=== PATIENT | male | born 1965 | race Hispanic/Latino ===

== ENCOUNTER 2021-12-31 18:10 | Emergency (ER) | payer MEDICARE ==
[2021-12-31] MEDS ORDERED: Cyclobenzaprine 10 MG TAB ONE (20:01)
== END 2021-12-31 20:50 | disposition home or self-care (01) ==
LOC: CSHERS 18:10
DX: M54.6 Pain in thoracic spine (principal); E78.5 Hyperlipidemia, unspecified; E11.22 Type 2 diabetes mellitus with diabetic chronic kidney disease; I12.0 Hypertensive chronic kidney disease with stage 5 chronic kidney disease or end stage renal disease; N18.6 End stage renal disease; W19.XXXA Unspecified fall, initial encounter
CPT/HCPCS: 72040; 72072

== ENCOUNTER 2022-02-23 17:00 | Emergency (ER) | payer MEDICARE ==
[2022-02-23 18:22] LABS: SARS-CoV-2 NAA Rapid Test DETECTED (NotDetected)
== END 2022-02-23 19:03 | disposition home or self-care (01) ==
LOC: CSHERS 17:00
DX: U07.1 COVID-19 (principal); E78.5 Hyperlipidemia, unspecified; E11.22 Type 2 diabetes mellitus with diabetic chronic kidney disease; I12.0 Hypertensive chronic kidney disease with stage 5 chronic kidney disease or end stage renal disease; N18.6 End stage renal disease
CPT/HCPCS: 0240U; 99284

== ENCOUNTER 2022-04-07 14:56 | Inpatient (IN) | payer MEDICARE ==
[2022-04-07 15:43] LABS: #Basophils 0.1 10x3/uL (0.0-0.2); #Eosinphils 0.2 10x3/uL (0.0-0.5); #Monocytes 1.2 10x3/uL (0.0-1.1); #Neutrophils 6.4 10x3/uL (1.5-8.4); %Basophils 0.8 % (0.0-2.0); %Eosinophils 2.1 % (0.0-6.0); %Monocytes 11.7 % (0.0-10.0); %Neutrophils 62.2 % (40.0-75.0); Mean Corpuscular HGB CONC 32.7 g/dL (32.0-36.0); Mean Corpuscular Hemoglobin 29.3 pg (27.0-33.0); Mean Corpuscular Volume 89.5 fl (81.2-95.1); Mean Platelet Volume 12.7 fl (7.4-10.4); Platelet Count 240 10x3/uL (150-450); RBC Distribution Width 15.1 % (11.5-14.5); White Blood Cell (WBC) Count 10.3 10x3/uL (3.5-10.5)
[2022-04-07] MEDS ORDERED: Calcium Gluconate 9.2 MEQ, Admixture Fee 1 EACH in Sodium Chloride 0.9% 100 ML IVPB SCH (16:00)
[2022-04-07 16:21] LABS: ALT (SGPT) 32 U/L (8-55); AST (SGOT) 20 U/L (5-34); Albumin 3.7 g/dL (3.5-5.0); Alkaline Phosphatase 56 U/L (40-110); Anion Gap 21 mmol/L (10-20); BUN (Urea Nitrogen) 69 mg/dL (8.4-25.7); Bilirubin, Total 0.4 mg/dL (0.2-1.2); Calc. Creatinine Clearance 0 mL/min (70-130); Calcium 10.3 mg/dL (7.8-10.44); Carbon Dioxide 27 mmol/L (22-29); Chloride 94 mmol/L (98-107); Estimated GFR 5; Globulin 2.8 g/dL (2.4-3.5); Glucose 493 mg/dL (70-105); Potassium 5.6 mmol/L (3.5-5.1); Protein, Total 6.5 g/dL (6.0-8.3); Sodium 136 mmol/L (136-145)
[2022-04-07 16:44] LABS: CKMB 1.7 ng/mL (0-6.6)
[2022-04-07] MEDS ORDERED: Sodium Bicarb 50 MEQ/50 ML Abboject 8.4% SYRINGE ONE (17:16)
[2022-04-07 17:22] LABS: SARS-CoV-2 NAA Rapid Test DETECTED (NotDetected)
[2022-04-07] MEDS ORDERED: HumaLOG 300 UNITS/3 ML VIAL SC PRN (18:10)
[2022-04-07] MEDS ORDERED: Dextrose 50% Abboject 50 ML SYRINGE SLOW IVP PRN (18:10)
[2022-04-07] MEDS ORDERED: Dextrose 5% in Water 1,000 ML IV PRN (18:10)
[2022-04-07 19:11] LABS: HBSAg Index 0.24 S/CO (0-0.99); Hep B Surf Ag Non-Reactive S/CO (NonReactive)
[2022-04-07 19:15] LABS: Actual Bicarbonate (HCO3v) 32 mEq/L (22-28); Base Excess 5.1 mEq/L (-2.0 to +3.0); Chloride (VBG) 94 mmol/L (98-106); Critical Notified Whom: DURRI; Hemoglobin (Hb) 13.3 g/dL (13.1-17.2); Potassium (VBG) 5.27 mmol/L (3.70-5.30); Puncture Site Other Site; Sodium 138.2 mmol/L (133-146); pH (venous) 7.37 (7.32-7.43)
[2022-04-07 19:34] LABS: Troponin I 0.084 ng/mL (< 0.028)
[2022-04-07] MEDS ORDERED: Aspirin 325 MG TAB PO SCH (20:15)
[2022-04-07] MEDS ORDERED: Heparin 5,000 UNITS/ML VIAL ONE (21:51)
[2022-04-07] MEDS ORDERED: Aspirin 325 MG TAB ONE (21:52)
[2022-04-07] MEDS: Sodium Chloride 0.9% 1,000 ML IV SCH (22:04)
[2022-04-07] MEDS ORDERED: Guaifenesin DM 100-10/5 ML UDCUP PO PRN (22:21)
[2022-04-07 22:22] LABS: Troponin I 0.227 ng/mL (< 0.028)
[2022-04-07 22:30] LABS: Hemoglobin A1c 10.8 % (4.0-6.0)
[2022-04-07] MEDS ORDERED: Guaifenesin DM 100-10/5 ML UDCUP PO SCH (22:30)
[2022-04-07] MEDS: Heparin 5,000 UNITS/ML VIAL SC SCH (22:38)
[2022-04-07 23:14] LABS: Hep B Core Total Ab Non-Reactive (NonReactive); Hep B Core Total Index 0.08 S/CO (0-0.79); Hep C IgG Ab Non-Reactive (NonReactive)
[2022-04-07 23:26] LABS: HBSAB Concentration 23.77 mIU/mL
[2022-04-07 23:27] LABS: Hep B Surf AB Reactive (NonReactive); Hep C Index 0.09 S/CO (0-0.79)
[2022-04-07] MEDS: HumaLOG 300 UNITS/3 ML VIAL SC PRN (23:37)
[2022-04-07] MEDS ORDERED: HumaLOG 300 UNITS/3 ML VIAL ONE (23:41)
[2022-04-08] MEDS ORDERED: Oxymetazoline HCl 0.05% ( 15 ML ) ONE (03:00)
[2022-04-08 04:11] LABS: #Basophils 0.1 10x3/uL (0.0-0.2); #Eosinphils 0.3 10x3/uL (0.0-0.5); #Monocytes 1.1 10x3/uL (0.0-1.1); #Neutrophils 6.8 10x3/uL (1.5-8.4); %Basophils 0.7 % (0.0-2.0); %Eosinophils 3.1 % (0.0-6.0); %Monocytes 9.7 % (0.0-10.0); %Neutrophils 62.3 % (40.0-75.0); Hemoglobin 11.5 g/dL (13.5-17.5); Mean Corpuscular HGB CONC 31.9 g/dL (32.0-36.0); Mean Corpuscular Hemoglobin 29.2 pg (27.0-33.0); Mean Corpuscular Volume 91.4 fl (81.2-95.1); Mean Platelet Volume 12.2 fl (7.4-10.4); Platelet Count 222 10x3/uL (150-450); Red Blood Cell (RBC) Count 3.94 10x6/uL (4.32-5.72); White Blood Cell (WBC) Count 10.9 10x3/uL (3.5-10.5)
[2022-04-08 04:31] LABS: Anion Gap 16 mmol/L (10-20); BUN (Urea Nitrogen) 47 mg/dL (8.4-25.7); Calc. Creatinine Clearance 0 mL/min (70-130); Carbon Dioxide 29 mmol/L (22-29); Chloride 98 mmol/L (98-107); Estimated GFR 8; Glucose 234 mg/dL (70-105); Potassium 4.5 mmol/L (3.5-5.1); Sodium 138 mmol/L (136-145)
[2022-04-08] MEDS: Aspirin 81 mg Enteric Coated Tablet PO SCH (09:50)
[2022-04-08] MEDS: Sodium Chloride 0.9% 1,000 ML IV SCH (11:03)
[2022-04-08] MEDS: Heparin 5,000 UNITS/ML VIAL SC SCH ×2 (11:04→22:24)
[2022-04-08] MEDS ORDERED: guaiFENesin/Codeine 200 mg/20 mg 10 ml Cup PO PRN (11:57)
[2022-04-08] MEDS ORDERED: Albuterol 200 PUFF (6.7GM INHALER) INH PRN (12:03)
[2022-04-08] MEDS ORDERED: Lorazepam 0.5 MG TAB PO PRN (12:05)
[2022-04-08] MEDS ORDERED: hydrALAZINE 20 MG/ML VIAL SLOW IVP PRN (12:08)
[2022-04-08] MEDS ORDERED: Albuterol 200 PUFF (6.7GM INHALER) INH SCH (13:00)
[2022-04-08] MEDS: methylPREDNISolone Sod Succ 40 MG VIAL IVP SCH ×2 (14:48→21:45)
[2022-04-08] MEDS: Acetaminophen 325 MG TAB PO PRN (16:42)
[2022-04-08] MEDS: Ipratropium Oral Inhaler INH SCH (17:38)
[2022-04-08] MEDS: guaiFENesin/Codeine Phosphate 100 mg/10 mg 5 ml UD Cup PO PRN (17:42)
[2022-04-08] MEDS ORDERED: Lantus 1000 UNITS/10 ML VIAL SC SCH (21:00)
[2022-04-08] MEDS: HumaLOG 300 UNITS/3 ML VIAL SC PRN (22:29)
[2022-04-09] MEDS: Ipratropium Oral Inhaler INH SCH ×5 (00:38→18:50)
[2022-04-09] MEDS: guaiFENesin/Codeine Phosphate 100 mg/10 mg 5 ml UD Cup PO PRN (04:26)
[2022-04-09] MEDS: HumaLOG 300 UNITS/3 ML VIAL SC PRN ×3 (04:26→19:31)
[2022-04-09 05:27] LABS: #Monocytes 0.1 10x3/uL (0.0-1.1); #Neutrophils 8.3 10x3/uL (1.5-8.4); %Basophils 0.1 % (0.0-2.0); %Lymphocytes 9.5 % (18.0-47.0); %Monocytes 1.3 % (0.0-10.0); %Neutrophils 88.9 % (40.0-75.0); Hemoglobin 12.3 g/dL (13.5-17.5); Mean Corpuscular HGB CONC 32.1 g/dL (32.0-36.0); Mean Corpuscular Hemoglobin 29.2 pg (27.0-33.0); Mean Platelet Volume 12.8 fl (7.4-10.4); Platelet Count 242 10x3/uL (150-450); RBC Distribution Width 14.8 % (11.5-14.5); Red Blood Cell (RBC) Count 4.21 10x6/uL (4.32-5.72); White Blood Cell (WBC) Count 9.3 10x3/uL (3.5-10.5)
[2022-04-09 05:30] LABS: Anion Gap 19 mmol/L (10-20); BUN (Urea Nitrogen) 53 mg/dL (8.4-25.7); Calc. Creatinine Clearance 18 mL/min (70-130); Calcium 9.8 mg/dL (7.8-10.44); Carbon Dioxide 24 mmol/L (22-29); Chloride 95 mmol/L (98-107); Estimated GFR 8; Glucose 535 mg/dL (70-105); Potassium 5.5 mmol/L (3.5-5.1); Sodium 132 mmol/L (136-145)
[2022-04-09] MEDS ORDERED: Ventolin HFA Inhaler 60 PUFF INHALER INH SCH (07:00)
[2022-04-09] MEDS: methylPREDNISolone Sod Succ 40 MG VIAL IVP SCH ×2 (07:09→20:51)
[2022-04-09] MEDS: Amlodipine 10 MG TAB PO SCH (10:28)
[2022-04-09] MEDS: Heparin 5,000 UNITS/ML VIAL SC SCH ×2 (10:29→20:49)
[2022-04-09] MEDS: Aspirin 81 mg Enteric Coated Tablet PO SCH (10:29)
[2022-04-09] MEDS: hydrALAZINE 25 MG TAB PO SCH ×3 (10:29→21:04)
[2022-04-09 12:29] VITALS: BMI 41.4
[2022-04-09] MEDS: Albuterol 200 PUFF (6.7GM INHALER) INH SCH ×3 (14:12→18:49)
[2022-04-09] MEDS: Lantus 1000 UNITS/10 ML VIAL SC SCH (20:52)
[2022-04-10] MEDS: Calcium Carbonate 500 MG ChewTAB PO PRN (02:29)
[2022-04-10] MEDS: HumaLOG 300 UNITS/3 ML VIAL SC PRN ×4 (02:30→16:39)
[2022-04-10 05:19] LABS: #Monocytes 0.2 10x3/uL (0.0-1.1); #Neutrophils 11.3 10x3/uL (1.5-8.4); %Basophils 0.1 % (0.0-2.0); %Lymphocytes 4.5 % (18.0-47.0); %Monocytes 1.9 % (0.0-10.0); %Neutrophils 93.1 % (40.0-75.0); Mean Corpuscular HGB CONC 32.1 g/dL (32.0-36.0); Mean Corpuscular Hemoglobin 29.2 pg (27.0-33.0); Mean Platelet Volume 12.9 fl (7.4-10.4); Platelet Count 276 10x3/uL (150-450); RBC Distribution Width 14.8 % (11.5-14.5); Red Blood Cell (RBC) Count 4.11 10x6/uL (4.32-5.72); White Blood Cell (WBC) Count 12.2 10x3/uL (3.5-10.5)
[2022-04-10 05:27] LABS: Anion Gap 22 mmol/L (10-20); BUN (Urea Nitrogen) 54 mg/dL (8.4-25.7); Calc. Creatinine Clearance 20 mL/min (70-130); Calcium 9.8 mg/dL (7.8-10.44); Carbon Dioxide 24 mmol/L (22-29); Chloride 90 mmol/L (98-107); Estimated GFR 9; Potassium 4.9 mmol/L (3.5-5.1); Sodium 131 mmol/L (136-145)
[2022-04-10 05:58] LABS: Glucose 699 mg/dL (70-105)
[2022-04-10 07:17] LABS: Anion Gap 24 mmol/L (10-20); BUN (Urea Nitrogen) 59 mg/dL (8.4-25.7); Calc. Creatinine Clearance 19 mL/min (70-130); Carbon Dioxide 24 mmol/L (22-29); Chloride 93 mmol/L (98-107); Estimated GFR 8; Potassium 5.5 mmol/L (3.5-5.1); Sodium 135 mmol/L (136-145)
[2022-04-10] MEDS: Albuterol 200 PUFF (6.7GM INHALER) INH SCH ×4 (07:23→21:55)
[2022-04-10] MEDS: Ipratropium Oral Inhaler INH SCH ×4 (07:24→21:55)
[2022-04-10 07:30] LABS: Glucose 459 mg/dL (70-105)
[2022-04-10] MEDS: Aspirin 81 mg Enteric Coated Tablet PO SCH (08:36)
[2022-04-10] MEDS: methylPREDNISolone Sod Succ 40 MG VIAL IVP SCH ×2 (08:36→08:57)
[2022-04-10] MEDS: Lantus 1000 UNITS/10 ML VIAL SC SCH ×2 (08:37→22:10)
[2022-04-10] MEDS: hydrALAZINE 25 MG TAB PO SCH ×3 (08:40→21:49)
[2022-04-10] MEDS: Amlodipine 10 MG TAB PO SCH (08:40)
[2022-04-10] MEDS: Heparin 5,000 UNITS/ML VIAL SC SCH ×2 (08:58→21:46)
[2022-04-10 16:02] LABS: Anion Gap 20 mmol/L (10-20); BUN (Urea Nitrogen) 68 mg/dL (8.4-25.7); Calc. Creatinine Clearance 18 mL/min (70-130); Carbon Dioxide 26 mmol/L (22-29); Chloride 91 mmol/L (98-107); Estimated GFR 8; Glucose 418 mg/dL (70-105); Potassium 4.5 mmol/L (3.5-5.1); Sodium 132 mmol/L (136-145)
[2022-04-11] MEDS: Calcium Carbonate 500 MG ChewTAB PO PRN (01:06)
[2022-04-11 05:36] LABS: Anion Gap 19 mmol/L (10-20); BUN (Urea Nitrogen) 85 mg/dL (8.4-25.7); Calc. Creatinine Clearance 15 mL/min (70-130); Calcium 9.9 mg/dL (7.8-10.44); Carbon Dioxide 26 mmol/L (22-29); Chloride 91 mmol/L (98-107); Estimated GFR 6; Glucose 437 mg/dL (70-105); Potassium 4.3 mmol/L (3.5-5.1); Sodium 132 mmol/L (136-145)
[2022-04-11 05:38] LABS: #Basophils 0.1 10x3/uL (0.0-0.2); #Eosinphils 0.1 10x3/uL (0.0-0.5); #Monocytes 1.2 10x3/uL (0.0-1.1); #Neutrophils 8.7 10x3/uL (1.5-8.4); %Basophils 0.8 % (0.0-2.0); %Eosinophils 0.8 % (0.0-6.0); %Lymphocytes 23.5 % (18.0-47.0); %Monocytes 9.1 % (0.0-10.0); %Neutrophils 65.1 % (40.0-75.0); Hemoglobin 12.4 g/dL (13.5-17.5); Mean Corpuscular Hemoglobin 29.5 pg (27.0-33.0); Mean Corpuscular Volume 89.5 fl (81.2-95.1); Mean Platelet Volume 12.2 fl (7.4-10.4); Platelet Count 293 10x3/uL (150-450); RBC Distribution Width 14.7 % (11.5-14.5); White Blood Cell (WBC) Count 13.4 10x3/uL (3.5-10.5)
[2022-04-11] MEDS: HumaLOG 300 UNITS/3 ML VIAL SC PRN ×3 (06:10→15:51)
[2022-04-11] MEDS: Albuterol 200 PUFF (6.7GM INHALER) INH SCH ×4 (07:07→19:36)
[2022-04-11] MEDS: Ipratropium Oral Inhaler INH SCH ×4 (07:08→19:38)
[2022-04-11] MEDS: Aspirin 81 mg Enteric Coated Tablet PO SCH (09:38)
[2022-04-11] MEDS: hydrALAZINE 25 MG TAB PO SCH ×2 (09:38→14:13)
[2022-04-11] MEDS: Lantus 1000 UNITS/10 ML VIAL SC SCH (09:38)
[2022-04-11] MEDS: Amlodipine 10 MG TAB PO SCH (09:38)
[2022-04-11] MEDS: Heparin 5,000 UNITS/ML VIAL SC SCH (10:00)
[2022-04-11] MEDS: Acetaminophen 325 MG TAB PO PRN (13:41)
[2022-04-11] MEDS ORDERED: Heparin 10,000 UNITS/ 10 ML VIAL SLOW IVP PRN (15:07)
[2022-04-11 16:11] VITALS: BP 118/58; TEMP 97.9
== END 2022-04-11 19:36 | disposition home or self-care (01) | DRG 177 ==
LOC: CSHERS 14:56 → CSHERHOLD 21:12 → CSHTELE 04-08 08:11
PROVIDERS: ADMIT Internal Medicine; ATTEND Internal Medicine
PROC: 8E0ZXY6 Isolation (ICD-10-PCS; principal; 2022-04-07)
PROC: 5A1D70Z Performance of Urinary Filtration, Intermittent, Less than 6 Hours Per Day (ICD-10-PCS; 2022-04-09)
DX: U07.1 COVID-19 (principal); J12.82 Pneumonia due to coronavirus disease 2019; N18.6 End stage renal disease; I12.0 Hypertensive chronic kidney disease with stage 5 chronic kidney disease or end stage renal disease; E11.22 Type 2 diabetes mellitus with diabetic chronic kidney disease; E11.65 Type 2 diabetes mellitus with hyperglycemia; J45.909 Unspecified asthma, uncomplicated; E87.5 Hyperkalemia; I44.0 Atrioventricular block, first degree; R79.89 Other specified abnormal findings of blood chemistry; D63.1 Anemia in chronic kidney disease; F41.9 Anxiety disorder, unspecified; I48.91 Unspecified atrial fibrillation; E78.00 Pure hypercholesterolemia, unspecified; E83.52 Hypercalcemia; I95.9 Hypotension, unspecified; Z79.899 Other long term (current) drug therapy; Z90.49 Acquired absence of other specified parts of digestive tract; Z99.2 Dependence on renal dialysis; Z79.4 Long term (current) use of insulin; Z87.442 Personal history of urinary calculi; Z82.49 Family history of ischemic heart disease and other diseases of the circulatory system; Z83.3 Family history of diabetes mellitus
CPT/HCPCS: 36415; 36416; 71045; 80048; 80053; 82010; 82553; 82805; 83036; 83880; 84484; 85025; 86140; 86704; 87340; 90935; 93005; 93306; 94664; 94760; 96365; 96375; G0257; J0360; J0610; J1644; J1815; J2920; J3490; J7050

== ENCOUNTER 2022-04-12 05:29 | Inpatient (IN) | payer MEDICARE ==
[2022-04-12] MEDS ORDERED: Atropine Sulfate 1 mg/10 ml Syringe ONE (06:14)
[2022-04-12 06:23] LABS: Phosphorus 5.6 mg/dL (2.3-4.7)
[2022-04-12 06:28] LABS: ALT (SGPT) 16 U/L (8-55); AST (SGOT) 9 U/L (5-34); Albumin 3.8 g/dL (3.5-5.0); Alkaline Phosphatase 60 U/L (40-110); Anion Gap 22 mmol/L (10-20); BUN (Urea Nitrogen) 51 mg/dL (8.4-25.7); Bilirubin, Total 0.5 mg/dL (0.2-1.2); Calc. Creatinine Clearance 0 mL/min (70-130); Calcium 10.1 mg/dL (7.8-10.44); Carbon Dioxide 24 mmol/L (22-29); Chloride 91 mmol/L (98-107); Estimated GFR 9; Globulin 3.5 g/dL (2.4-3.5); Glucose 205 mg/dL (70-105); Magnesium 2.2 mg/dL (1.6-2.6); Potassium 4.6 mmol/L (3.5-5.1); Protein, Total 7.3 g/dL (6.0-8.3); Sodium 132 mmol/L (136-145)
[2022-04-12 06:41] LABS: #Basophils 0.1 10x3/uL (0.0-0.2); #Eosinphils 0.2 10x3/uL (0.0-0.5); #Monocytes 1.7 10x3/uL (0.0-1.1); #Neutrophils 9.3 10x3/uL (1.5-8.4); %Basophils 0.6 % (0.0-2.0); %Eosinophils 1.2 % (0.0-6.0); %Lymphocytes 23.2 % (18.0-47.0); %Monocytes 11.4 % (0.0-10.0); %Neutrophils 63.1 % (40.0-75.0); Hemoglobin 13.9 g/dL (13.5-17.5); Mean Corpuscular HGB CONC 33.9 g/dL (32.0-36.0); Mean Corpuscular Hemoglobin 30.3 pg (27.0-33.0); Mean Corpuscular Volume 89.3 fl (81.2-95.1); Mean Platelet Volume 12.1 fl (7.4-10.4); Platelet Count 372 10x3/uL (150-450); Red Blood Cell (RBC) Count 4.59 10x6/uL (4.32-5.72); White Blood Cell (WBC) Count 14.8 10x3/uL (3.5-10.5)
[2022-04-12 06:46] LABS: CKMB 1.6 ng/mL (0-6.6)
[2022-04-12] MEDS: Acetaminophen 325 MG TAB PO PRN (10:20)
[2022-04-12] MEDS ORDERED: Dextrose 50% Abboject 50 ML SYRINGE SLOW IVP PRN (10:52)
[2022-04-12] MEDS ORDERED: Dextrose 5% in Water 1,000 ML IV PRN (10:52)
[2022-04-12] MEDS ORDERED: Albuterol 200 PUFF (6.7GM INHALER) INH PRN (10:54)
[2022-04-12 12:16] LABS: CKMB 1.4 ng/mL (0-6.6)
[2022-04-12] MEDS ORDERED: Pantoprazole 40 MG VIAL IVP SCH (12:30)
[2022-04-12] MEDS: hydrALAZINE 25 MG TAB PO SCH ×2 (16:19→22:12)
[2022-04-12] MEDS: Heparin 5,000 UNITS/ML VIAL SC SCH ×2 (16:19→22:10)
[2022-04-12] MEDS ORDERED: Calcium Carbonate 500 MG ChewTAB PO PRN (18:35)
[2022-04-12] MEDS: Montelukast Sodium 10 mg Tablet PO SCH (22:11)
[2022-04-12] MEDS: HumaLOG 300 UNITS/3 ML VIAL SC PRN (22:31)
[2022-04-13 04:30] LABS: #Basophils 0.1 10x3/uL (0.0-0.2); #Eosinphils 0.3 10x3/uL (0.0-0.5); #Monocytes 1.5 10x3/uL (0.0-1.1); %Basophils 0.9 % (0.0-2.0); %Eosinophils 2.3 % (0.0-6.0); %Lymphocytes 26.7 % (18.0-47.0); %Neutrophils 57.5 % (40.0-75.0); Hemoglobin 13.8 g/dL (13.5-17.5); Mean Corpuscular HGB CONC 32.8 g/dL (32.0-36.0); Mean Corpuscular Hemoglobin 29.6 pg (27.0-33.0); Mean Corpuscular Volume 90.1 fl (81.2-95.1); Mean Platelet Volume 11.9 fl (7.4-10.4); Platelet Count 306 10x3/uL (150-450); RBC Distribution Width 15.5 % (11.5-14.5); Red Blood Cell (RBC) Count 4.67 10x6/uL (4.32-5.72); White Blood Cell (WBC) Count 12.1 10x3/uL (3.5-10.5)
[2022-04-13 05:13] LABS: Anion Gap 26 mmol/L (10-20); BUN (Urea Nitrogen) 76 mg/dL (8.4-25.7); Calc. Creatinine Clearance 16 mL/min (70-130); Carbon Dioxide 20 mmol/L (22-29); Chloride 90 mmol/L (98-107); Estimated GFR 7; Glucose 288 mg/dL (70-105); Magnesium 2.6 mg/dL (1.6-2.6); Phosphorus 8.4 mg/dL (2.3-4.7); Potassium 5.5 mmol/L (3.5-5.1); Sodium 130 mmol/L (136-145)
[2022-04-13] MEDS ORDERED: Atropine Sulfate 1 mg/10 ml Syringe IVP SCH ×2 (06:30→07:30)
[2022-04-13] MEDS: DOPamine 400 MG/D5W 250 ML 250 ML IVPB SCH ×2 (07:36→17:20)
[2022-04-13] MEDS: Acetaminophen 325 MG TAB PO PRN (07:50)
[2022-04-13] MEDS: Aspirin 81 mg Enteric Coated Tablet PO SCH (08:47)
[2022-04-13] MEDS: Atorvastatin Calcium 40 MG TAB PO SCH (08:47)
[2022-04-13] MEDS: Heparin 5,000 UNITS/ML VIAL SC SCH ×3 (08:47→20:13)
[2022-04-13] MEDS ORDERED: Heparin 10,000 UNITS/ 10 ML VIAL FS PRN (09:00)
[2022-04-13] MEDS ORDERED: Amlodipine 10 MG TAB PO SCH (09:00)
[2022-04-13] MEDS: HumaLOG 300 UNITS/3 ML VIAL SC PRN ×2 (16:32→20:44)
[2022-04-13] MEDS: Montelukast Sodium 10 mg Tablet PO SCH (20:13)
[2022-04-13] MEDS: Lantus 1000 UNITS/10 ML VIAL SC SCH (20:15)
[2022-04-14 04:17] LABS: #Basophils 0.1 10x3/uL (0.0-0.2); #Eosinphils 0.3 10x3/uL (0.0-0.5); #Monocytes 1.8 10x3/uL (0.0-1.1); #Neutrophils 8.2 10x3/uL (1.5-8.4); %Basophils 0.6 % (0.0-2.0); %Eosinophils 2.4 % (0.0-6.0); %Lymphocytes 24.6 % (18.0-47.0); %Monocytes 13.1 % (0.0-10.0); %Neutrophils 58.9 % (40.0-75.0); Hemoglobin 12.7 g/dL (13.5-17.5); Mean Corpuscular HGB CONC 33.5 g/dL (32.0-36.0); Mean Corpuscular Hemoglobin 29.5 pg (27.0-33.0); Mean Corpuscular Volume 87.9 fl (81.2-95.1); Platelet Count 323 10x3/uL (150-450); RBC Distribution Width 15.2 % (11.5-14.5); Red Blood Cell (RBC) Count 4.31 10x6/uL (4.32-5.72)
[2022-04-14 04:33] LABS: Anion Gap 22 mmol/L (10-20); BUN (Urea Nitrogen) 51 mg/dL (8.4-25.7); Calc. Creatinine Clearance 18 mL/min (70-130); Calcium 9.5 mg/dL (7.8-10.44); Carbon Dioxide 21 mmol/L (22-29); Chloride 94 mmol/L (98-107); Estimated GFR 8; Glucose 217 mg/dL (70-105); Magnesium 2.5 mg/dL (1.6-2.6); Potassium 5.3 mmol/L (3.5-5.1); Sodium 132 mmol/L (136-145)
[2022-04-14 05:10] LABS: Platelet Clumps SLIGHT; Platelet Morphology Comment Appears Adequate; RBC Morphology Normal
[2022-04-14] MEDS: DOPamine 400 MG/D5W 250 ML 250 ML IVPB SCH (07:12)
[2022-04-14] MEDS: Aspirin 81 mg Enteric Coated Tablet PO SCH (08:04)
[2022-04-14] MEDS: Heparin 5,000 UNITS/ML VIAL SC SCH ×3 (08:04→19:38)
[2022-04-14] MEDS: Atorvastatin Calcium 40 MG TAB PO SCH (08:04)
[2022-04-14] MEDS: Lantus 1000 UNITS/10 ML VIAL SC SCH ×2 (08:04→19:39)
[2022-04-14] MEDS: Isoproterenol 2 MG in Dextrose 5% in Water 500 ML IVPB SCH ×2 (10:47→19:57)
[2022-04-14] MEDS: Acetaminophen 325 MG TAB PO PRN ×2 (11:57→16:03)
[2022-04-14] MEDS ORDERED: Ventolin HFA Inhaler 60 PUFF INHALER INH PRN (12:00)
[2022-04-14] MEDS: HumaLOG 300 UNITS/3 ML VIAL SC PRN ×3 (12:03→19:47)
[2022-04-14] MEDS: ALPRAZolam 0.5 MG TAB PO PRN ×2 (12:23→19:38)
[2022-04-14 13:39] LABS: SARS-CoV-2 NAA Rapid Test Not Detected (NotDetected)
[2022-04-14] MEDS: Montelukast Sodium 10 mg Tablet PO SCH (19:38)
[2022-04-15] MEDS: Isoproterenol 2 MG in Dextrose 5% in Water 500 ML IVPB SCH (03:20)
[2022-04-15 04:59] LABS: #Basophils 0.1 10x3/uL (0.0-0.2); #Eosinphils 0.2 10x3/uL (0.0-0.5); #Monocytes 2.2 10x3/uL (0.0-1.1); #Neutrophils 12.1 10x3/uL (1.5-8.4); %Basophils 0.5 % (0.0-2.0); %Monocytes 12.7 % (0.0-10.0); %Neutrophils 70.2 % (40.0-75.0); Mean Corpuscular HGB CONC 32.8 g/dL (32.0-36.0); Mean Corpuscular Hemoglobin 29.4 pg (27.0-33.0); Mean Corpuscular Volume 89.6 fl (81.2-95.1); Mean Platelet Volume 13.1 fl (7.4-10.4); Platelet Count 270 10x3/uL (150-450); RBC Distribution Width 15.6 % (11.5-14.5); Red Blood Cell (RBC) Count 3.74 10x6/uL (4.32-5.72); White Blood Cell (WBC) Count 17.7 10x3/uL (3.5-10.5)
[2022-04-15 05:10] LABS: Anion Gap 25 mmol/L (10-20); BUN (Urea Nitrogen) 44 mg/dL (8.4-25.7); Calc. Creatinine Clearance 18 mL/min (70-130); Calcium 9.3 mg/dL (7.8-10.44); Carbon Dioxide 19 mmol/L (22-29); Chloride 94 mmol/L (98-107); Estimated GFR 8; Glucose 261 mg/dL (70-105); Magnesium 2.4 mg/dL (1.6-2.6); Potassium 5.3 mmol/L (3.5-5.1); Sodium 133 mmol/L (136-145)
[2022-04-15] MEDS ORDERED: Lidocaine 1% 20 ML MDV ONE (06:20)
[2022-04-15] MEDS ORDERED: Gentamicin 80 MG/2 ML VIAL ONE ×2 (06:21→06:22)
[2022-04-15] MEDS ORDERED: CEFAZOLIN 1 GM VIAL ONE (06:21)
[2022-04-15 06:29] VITALS: BMI 39.8
[2022-04-15] MEDS: HumaLOG 300 UNITS/3 ML VIAL SC PRN (06:31)
[2022-04-15] MEDS ORDERED: Fentanyl 100 MCG/2 ML VIAL ONE (07:10)
[2022-04-15] MEDS ORDERED: Midazolam HCl 2 mg/2 ml Vial ONE ×3 (07:11→08:13)
[2022-04-15] MEDS ORDERED: Iopamidol 300 61% 50 ML VIAL FS ONE (09:33)
[2022-04-15] MEDS: Atorvastatin Calcium 40 MG TAB PO SCH (09:58)
[2022-04-15] MEDS: Aspirin 81 mg Enteric Coated Tablet PO SCH (09:58)
[2022-04-15] MEDS: Lantus 1000 UNITS/10 ML VIAL SC SCH ×3 (10:01→22:08)
[2022-04-15] MEDS: Heparin 5,000 UNITS/ML VIAL SC SCH ×2 (10:06→22:08)
[2022-04-15] MEDS: Acetaminophen 325 MG TAB PO PRN ×2 (10:07→22:38)
[2022-04-15] MEDS: Mometasone/Formoterol 200/5 60 PUFF INH SCH (19:45)
[2022-04-15] MEDS: Montelukast Sodium 10 mg Tablet PO SCH (22:08)
[2022-04-15] MEDS: Cefadroxil Hydrate 250 mg/5 ml Suspensio PO SCH (22:09)
[2022-04-15] MEDS: ALPRAZolam 0.5 MG TAB PO PRN (22:38)
[2022-04-16 05:08] LABS: #Basophils 0.1 10x3/uL (0.0-0.2); #Eosinphils 0.3 10x3/uL (0.0-0.5); #Monocytes 1.2 10x3/uL (0.0-1.1); %Basophils 0.6 % (0.0-2.0); %Eosinophils 2.7 % (0.0-6.0); %Lymphocytes 20.9 % (18.0-47.0); %Monocytes 11.2 % (0.0-10.0); %Neutrophils 64.1 % (40.0-75.0); Hemoglobin 11.4 g/dL (13.5-17.5); Mean Corpuscular HGB CONC 32.1 g/dL (32.0-36.0); Mean Corpuscular Hemoglobin 29.8 pg (27.0-33.0); Mean Corpuscular Volume 92.9 fl (81.2-95.1); Mean Platelet Volume 12.2 fl (7.4-10.4); Platelet Count 343 10x3/uL (150-450); RBC Distribution Width 15.7 % (11.5-14.5); Red Blood Cell (RBC) Count 3.82 10x6/uL (4.32-5.72); White Blood Cell (WBC) Count 10.9 10x3/uL (3.5-10.5)
[2022-04-16 05:40] LABS: Anion Gap 20 mmol/L (10-20); BUN (Urea Nitrogen) 29 mg/dL (8.4-25.7); Calc. Creatinine Clearance 18 mL/min (70-130); Calcium 9.4 mg/dL (7.8-10.44); Carbon Dioxide 25 mmol/L (22-29); Chloride 97 mmol/L (98-107); Estimated GFR 8; Glucose 121 mg/dL (70-105); Magnesium 2.3 mg/dL (1.6-2.6); Potassium 3.8 mmol/L (3.5-5.1); Sodium 138 mmol/L (136-145)
[2022-04-16] MEDS: Mometasone/Formoterol 200/5 60 PUFF INH SCH ×2 (07:33→18:45)
[2022-04-16] MEDS: Atorvastatin Calcium 40 MG TAB PO SCH (08:33)
[2022-04-16] MEDS: Cefadroxil Hydrate 250 mg/5 ml Suspensio PO SCH ×2 (08:33→19:33)
[2022-04-16] MEDS: Aspirin 81 mg Enteric Coated Tablet PO SCH (08:33)
[2022-04-16] MEDS: Acetaminophen 325 MG TAB PO PRN (08:34)
[2022-04-16] MEDS: Heparin 5,000 UNITS/ML VIAL SC SCH ×2 (08:42→19:33)
[2022-04-16] MEDS: Lantus 1000 UNITS/10 ML VIAL SC SCH ×3 (08:47→19:34)
[2022-04-16] MEDS ORDERED: Iopamidol 300 61% 50 ML VIAL FS ONE (09:32)
[2022-04-16] MEDS ORDERED: Lidocaine 1% 20 ML MDV ONE (13:19)
[2022-04-16] MEDS: Benzonatate 100 MG CAP PO SCH ×2 (15:57→19:33)
[2022-04-16] MEDS: HumaLOG 300 UNITS/3 ML VIAL SC PRN (16:06)
[2022-04-16] MEDS: Montelukast Sodium 10 mg Tablet PO SCH (19:33)
[2022-04-16 19:51] VITALS: BP 136/65; TEMP 98.2
== END 2022-04-16 19:45 | disposition home or self-care (01) | DRG 242 ==
LOC: CSHERS 05:29 → CSHTELE 08:38 → CSHIMCU 04-13 07:01 → CSHTELE 04-15 09:35
PROVIDERS: ADMIT Family Medicine; ATTEND Family Medicine
PROC: 8E0ZXY6 Isolation (ICD-10-PCS; 2022-04-12)
PROC: 5A1D70Z Performance of Urinary Filtration, Intermittent, Less than 6 Hours Per Day (ICD-10-PCS; 2022-04-14)
PROC: 0JH606Z Insertion of Pacemaker, Dual Chamber into Chest Subcutaneous Tissue and Fascia, Open Approach (ICD-10-PCS; principal; 2022-04-15)
PROC: 02H63JZ Insertion of Pacemaker Lead into Right Atrium, Percutaneous Approach (ICD-10-PCS; 2022-04-15)
PROC: 02HK3JZ Insertion of Pacemaker Lead into Right Ventricle, Percutaneous Approach (ICD-10-PCS; 2022-04-15)
DX: I44.2 Atrioventricular block, complete (principal); N18.6 End stage renal disease; U07.1 COVID-19; I24.8 Other forms of acute ischemic heart disease; E87.1 Hypo-osmolality and hyponatremia; E87.2 Acidosis; I13.2 Hypertensive heart and chronic kidney disease with heart failure and with stage 5 chronic kidney disease, or end stage renal disease; E78.5 Hyperlipidemia, unspecified; E11.22 Type 2 diabetes mellitus with diabetic chronic kidney disease; E78.00 Pure hypercholesterolemia, unspecified; E11.40 Type 2 diabetes mellitus with diabetic neuropathy, unspecified; E66.01 Morbid (severe) obesity due to excess calories; D63.1 Anemia in chronic kidney disease; E87.5 Hyperkalemia; Z20.822 Contact with and (suspected) exposure to COVID-19; E78.1 Pure hyperglyceridemia; E11.65 Type 2 diabetes mellitus with hyperglycemia; Z68.39 Body mass index [BMI] 39.0-39.9, adult; Z99.2 Dependence on renal dialysis; Z90.49 Acquired absence of other specified parts of digestive tract; Z79.51 Long term (current) use of inhaled steroids; Z79.899 Other long term (current) drug therapy; Z79.82 Long term (current) use of aspirin; Z79.4 Long term (current) use of insulin; Z98.890 Other specified postprocedural states
CPT/HCPCS: 33208; 36415; 36416; 36901; 71045; 76080; 80048; 80053; 82553; 83735; 83880; 84100; 84443; 84484; 85025; 90935; 93005; 93010; 94760; 96374; 99152; 99153; C1760; C1785; C1898; C9113; G0257; J0461; J0690; J1265; J1580; J1644; J1815; J2250; J3010; J7070; Q9967; U0002

== ENCOUNTER 2022-10-22 10:22 | Emergency (ER) | payer MEDICARE ==
[2022-10-22 12:23] LABS: #Basophils 0.1 10x3/uL (0.0-0.2); #Eosinphils 0.4 10x3/uL (0.0-0.5); #Monocytes 1.3 10x3/uL (0.0-1.1); %Basophils 0.9 % (0.0-2.0); %Eosinophils 2.8 % (0.0-6.0); %Lymphocytes 13.9 % (18.0-47.0); %Monocytes 10.2 % (0.0-10.0); %Neutrophils 71.9 % (40.0-75.0); Hemoglobin 13.3 g/dL (13.5-17.5); Mean Corpuscular HGB CONC 31.3 g/dL (32.0-36.0); Mean Corpuscular Hemoglobin 27.2 pg (27.0-33.0); Mean Corpuscular Volume 86.9 fl (81.2-95.1); Mean Platelet Volume 11.3 fl (7.4-10.4); Platelet Count 318 10x3/uL (150-450); RBC Distribution Width 15.3 % (11.5-14.5); Red Blood Cell (RBC) Count 4.89 10x6/uL (4.32-5.72); White Blood Cell (WBC) Count 12.5 10x3/uL (3.5-10.5)
[2022-10-22] MEDS ORDERED: Ondansetron PF 4 MG/2 ML Vial ONE (12:24)
[2022-10-22] MEDS ORDERED: Fentanyl 100 MCG/2 ML VIAL ONE (12:25)
[2022-10-22 12:34] LABS: ALT (SGPT) 12 U/L (8-55); AST (SGOT) 12 U/L (5-34); Albumin 4.2 g/dL (3.5-5.0); Alkaline Phosphatase 60 U/L (40-110); Anion Gap 19 mmol/L (10-20); BUN (Urea Nitrogen) 27 mg/dL (8.4-25.7); Bilirubin, Total 0.5 mg/dL (0.2-1.2); Calc. Creatinine Clearance 0 mL/min (70-130); Calcium 10.1 mg/dL (7.8-10.44); Carbon Dioxide 29 mmol/L (22-29); Chloride 96 mmol/L (98-107); Estimated GFR 9; Globulin 3.7 g/dL (2.4-3.5); Glucose 100 mg/dL (70-105); Potassium 4.2 mmol/L (3.5-5.1); Protein, Total 7.9 g/dL (6.0-8.3); Sodium 140 mmol/L (136-145)
[2022-10-22] MEDS ORDERED: Morphine 4 MG/ML VIAL ONE (14:03)
== END 2022-10-22 17:16 | disposition home or self-care (01) ==
LOC: CSHERS 10:22
DX: M25.552 Pain in left hip (principal); D72.829 Elevated white blood cell count, unspecified; E11.22 Type 2 diabetes mellitus with diabetic chronic kidney disease; N18.6 End stage renal disease; I12.0 Hypertensive chronic kidney disease with stage 5 chronic kidney disease or end stage renal disease; W06.XXXA Fall from bed, initial encounter
CPT/HCPCS: 36415; 70450; 71045; 80053; 85025; 93005; 94760; 96374; 96375; J2270; J2405; J3010

== ENCOUNTER 2023-09-10 18:43 | Emergency (ER) | payer MEDICARE ==
[2023-09-10 19:38] LABS: #Basophils 0.1 10x3/uL (0.0-0.2); #Eosinphils 0.3 10x3/uL (0.0-0.5); #Monocytes 0.9 10x3/uL (0.0-1.1); #Neutrophils 8.1 10x3/uL (1.5-8.4); %Eosinophils 2.3 % (0.0-6.0); %Lymphocytes 17.9 % (18.0-47.0); %Monocytes 7.8 % (0.0-10.0); %Neutrophils 70.7 % (40.0-75.0); Hemoglobin 12.6 g/dL (13.5-17.5); Mean Corpuscular HGB CONC 32.3 g/dL (32.0-36.0); Mean Corpuscular Hemoglobin 29.8 pg (27.0-33.0); Mean Corpuscular Volume 92.2 fl (81.2-95.1); Mean Platelet Volume 11.8 fl (7.4-10.4); Platelet Count 311 10x3/uL (150-450); RBC Distribution Width 14.4 % (11.5-14.5); Red Blood Cell (RBC) Count 4.23 10x6/uL (4.32-5.72); White Blood Cell (WBC) Count 11.5 10x3/uL (3.5-10.5)
[2023-09-10 19:46] LABS: Phosphorus 6.2 mg/dL (2.3-4.7)
[2023-09-10 19:47] LABS: ALT (SGPT) 9 U/L (8-55); AST (SGOT) 6 U/L (5-34); Albumin 4.1 g/dL (3.5-5.0); Alkaline Phosphatase 55 U/L (40-110); Anion Gap 20 mmol/L (10-20); BUN (Urea Nitrogen) 65 mg/dL (8.4-25.7); Bilirubin, Total 0.4 mg/dL (0.2-1.2); Calc. Creatinine Clearance 0 mL/min (70-130); Calcium 10.4 mg/dL (7.8-10.44); Carbon Dioxide 28 mmol/L (22-29); Chloride 96 mmol/L (98-107); Estimated GFR 5; Globulin 2.9 g/dL (2.4-3.5); Lipase 25 U/L (8-78); Magnesium 2.7 mg/dL (1.6-2.6); Potassium 5.6 mmol/L (3.5-5.1); Sodium 138 mmol/L (136-145)
[2023-09-10 19:48] LABS: Glucose 417 mg/dL (70-105)
[2023-09-10 19:50] LABS: Troponin I 0.061 ng/mL (< 0.028)
[2023-09-10 20:04] LABS: Actual Bicarbonate (HCO3v) 25.8 mEq/L (22-28); Analyzer IN Cardio CS ER; Base Excess 3.2 mEq/L (-2 - +2); Calcium, Ionized (venous) 1.16 mmol/L (1.16-1.32); Chloride (VBG) 95 mmol/L (98-106); Critical Notified By: CP.PH; Hematocrit-VBG 38 % (42.0-52.0); Hemoglobin (Hb) 12.8 g/dL (13.1-17.2); Potassium (VBG) 5.15 mmol/L (3.70-5.30); Puncture Site Other Site; RapidComm Collect By LAB.RB2; Sodium 135 mmol/L (133-146)
[2023-09-10] MEDS ORDERED: Nitroglycerin 2% Ointment 1 INCH/1 GM Packet ONE (20:40)
[2023-09-10] MEDS ORDERED: Insulin Regular 300 UNITS/3 ML VIAL ONE (21:01)
[2023-09-10 21:33] LABS: Bilirubin Neg (Negative); Blood, Urine 250 (Negative); Clarity Cloudy (Clear); Glucose, Urine (Dipstick) >=1000 mg/dL (Negative); Ketone, Urine Negative (Negative); Leukocyte 500 (Negative); Nitrite Negative (Negative); Protein, Urine (Dipstick) 500 mg/dl (Neg-Trace); Urobilinogen Normal mg/dL (Less than 2)
[2023-09-10 22:08] LABS: SARS-CoV-2 NAA Rapid Test Not Detected (NotDetected)
[2023-09-10 22:20] LABS: CAUTI Indications for Culture Dysuria,urgency,freq; RBC/HPF Greater than 50 HPF (0-3); WBC/HPF 21-50 HPF (0-3)
[2023-09-10 22:23] LABS: Bacteria/HPF 1+ HPF (None Seen); Squamous Epithelial 0-3 HPF (0-3)
[2023-09-10 22:24] LABS: Urine Culture Reflex Yes Yes
== END 2023-09-10 22:35 | disposition home or self-care (01) ==
LOC: CSHERS 18:43
DX: N39.0 Urinary tract infection, site not specified (principal); I12.0 Hypertensive chronic kidney disease with stage 5 chronic kidney disease or end stage renal disease; E11.22 Type 2 diabetes mellitus with diabetic chronic kidney disease; E11.65 Type 2 diabetes mellitus with hyperglycemia; N18.6 End stage renal disease; E78.5 Hyperlipidemia, unspecified; E66.9 Obesity, unspecified; J45.909 Unspecified asthma, uncomplicated; Z99.2 Dependence on renal dialysis; Z75.8 Other problems related to medical facilities and other health care; Z79.4 Long term (current) use of insulin
CPT/HCPCS: 0240U; 71045; 74176; 80053; 81001; 82010; 82805; 82962; 83605; 83690; 83735; 84100; 84484; 85025; 87040; 87086; 36415; 36416; 51701; 93005; 93010; 96361; 96374; J1815

== ENCOUNTER 2023-09-18 10:09 | Emergency (ER) | payer MEDICARE ==
[2023-09-18] MEDS ORDERED: Ondansetron ODT 4 MG TAB ONE ×2 (12:21→14:01)
[2023-09-18] MEDS ORDERED: Ketorolac Tromethamine 30 MG (1 mL) VIAL ONE ×2 (12:21→14:00)
[2023-09-18] MEDS ORDERED: Methocarbamol 500 MG TAB PO SCH (12:30)
== END 2023-09-18 15:26 | disposition home or self-care (01) ==
LOC: CSHERS 10:09
DX: G89.29 Other chronic pain (principal); M54.9 Dorsalgia, unspecified; I12.0 Hypertensive chronic kidney disease with stage 5 chronic kidney disease or end stage renal disease; E11.22 Type 2 diabetes mellitus with diabetic chronic kidney disease; N18.6 End stage renal disease; Z99.2 Dependence on renal dialysis; Z79.85 Long-term (current) use of injectable non-insulin antidiabetic drugs
CPT/HCPCS: 96372; 99283; J1885; Q0162

== ENCOUNTER 2023-09-21 12:37 | Emergency (ER) | payer MEDICARE ==
[2023-09-21] MEDS ORDERED: Ketorolac Tromethamine 30 MG (1 mL) VIAL ONE (13:44)
[2023-09-21 14:11] LABS: ALT (SGPT) 9 U/L (8-55); AST (SGOT) 15 U/L (5-34); Albumin 3.7 g/dL (3.5-5.0); Alkaline Phosphatase 54 U/L (40-110); Anion Gap 20 mmol/L (10-20); BUN (Urea Nitrogen) 48 mg/dL (8.4-25.7); Bilirubin, Total 0.4 mg/dL (0.2-1.2); Calc. Creatinine Clearance 0 mL/min (70-130); Calcium 10.4 mg/dL (7.8-10.44); Carbon Dioxide 30 mmol/L (22-29); Chloride 97 mmol/L (98-107); Estimated GFR 7; Globulin 3.4 g/dL (2.4-3.5); Glucose 201 mg/dL (70-105); Potassium 5.7 mmol/L (3.5-5.1); Protein, Total 7.1 g/dL (6.0-8.3); Sodium 141 mmol/L (136-145)
[2023-09-21 14:51] LABS: #Basophils 0.1 10x3/uL (0.0-0.2); #Eosinphils 0.2 10x3/uL (0.0-0.5); #Monocytes 1.1 10x3/uL (0.0-1.1); #Neutrophils 8.9 10x3/uL (1.5-8.4); %Basophils 0.7 % (0.0-2.0); %Eosinophils 1.4 % (0.0-6.0); %Lymphocytes 16.5 % (18.0-47.0); %Monocytes 8.7 % (0.0-10.0); %Neutrophils 72.4 % (40.0-75.0); Hematocrit 36.7 % (38.8-50.0); Hemoglobin 11.6 g/dL (13.5-17.5); Mean Corpuscular HGB CONC 31.6 g/dL (32.0-36.0); Mean Corpuscular Hemoglobin 29.7 pg (27.0-33.0); Mean Corpuscular Volume 94.1 fl (81.2-95.1); Mean Platelet Volume 12.6 fl (7.4-10.4); Platelet Count 226 10x3/uL (150-450); White Blood Cell (WBC) Count 12.2 10x3/uL (3.5-10.5)
[2023-09-21 15:31] LABS: Potassium 5.4 mmol/L (3.5-5.1)
[2023-09-21 18:48] LABS: Platelet Adequacy Comment PLT clumps seen-ADEQ; Platelet Clumps SLIGHT; RBC Morph Comment Within Normal Limits
== END 2023-09-21 16:21 | disposition home or self-care (01) ==
LOC: CSHERS 12:37
DX: R10.30 Lower abdominal pain, unspecified (principal); I12.0 Hypertensive chronic kidney disease with stage 5 chronic kidney disease or end stage renal disease; E11.22 Type 2 diabetes mellitus with diabetic chronic kidney disease; N18.6 End stage renal disease; Z99.2 Dependence on renal dialysis
CPT/HCPCS: 36415; 74176; 80053; 85025; 96372; J1885

== ENCOUNTER 2024-07-15 15:49 | Emergency (ER) | payer OTHER ==
[2024-07-15 17:17] LABS: #Basophils 0.12 10x3/uL (0.0-0.2); #Monocytes 1.07 10x3/uL (0.0-1.1); #Neutrophils 9.77 10x3/uL (1.5-8.4); %Basophils 0.9 % (0.0-2.0); %Eosinophils 2.3 % (0.0-6.0); %Lymphocytes 13.7 % (18.0-47.0); %Monocytes 8.2 % (0.0-10.0); %Neutrophils 74.4 % (40.0-75.0); Hematocrit 40.7 % (38.8-50.0); Hemoglobin 13.4 g/dL (13.5-17.5); Mean Corpuscular HGB CONC 32.9 g/dL (32.0-36.0); Mean Corpuscular Hemoglobin 28.8 pg (27.0-33.0); Mean Corpuscular Volume 87.3 fL (81.2-95.1); Platelet Count 98 10x3/uL (150-450); Red Blood Cell (RBC) Count 4.66 10x6/uL (4.32-5.72); White Blood Cell (WBC) Count 13.1 10x3/uL (3.5-10.5)
[2024-07-15 17:35] LABS: Troponin I 0.089 ng/mL (< 0.028)
[2024-07-15] MEDS ORDERED: Ondansetron PF 4 MG/2 ML Vial ONE (17:38)
[2024-07-15 18:12] LABS: ALT (SGPT) 15 U/L (8-55); AST (SGOT) 14 U/L (5-34); Albumin 3.3 g/dL (3.5-5.0); Alkaline Phosphatase 67 U/L (40-110); Anion Gap 21 mmol/L (10-20); BUN (Urea Nitrogen) 31 mg/dL (8.4-25.7); Bilirubin, Total 0.4 mg/dL (0.2-1.2); Calc. Creatinine Clearance 0 mL/min (70-130); Calcium 10.1 mg/dL (7.8-10.44); Carbon Dioxide 28 mmol/L (22-29); Chloride 93 mmol/L (98-107); Estimated GFR 9; Globulin 3.8 g/dL (2.4-3.5); Glucose 339 mg/dL (70-105); Potassium 4.5 mmol/L (3.5-5.1); Protein, Total 7.1 g/dL (6.0-8.3); Sodium 137 mmol/L (136-145)
[2024-07-15 19:42] LABS: Anisocytosis SLIGHT = 6-15 cells (100X) (0-5/hpf); Large Platelets SLIGHT (None Seen); Platelet Adequacy Comment Appears Decreased
== END 2024-07-15 19:06 | disposition home or self-care (01) ==
LOC: CSHERS 15:49
DX: R06.02 Shortness of breath (principal); I12.0 Hypertensive chronic kidney disease with stage 5 chronic kidney disease or end stage renal disease; E11.22 Type 2 diabetes mellitus with diabetic chronic kidney disease; N18.6 End stage renal disease; Z99.2 Dependence on renal dialysis
CPT/HCPCS: 71045; 80053; 83880; 84484; 85025; 87428; 93005; J2405; 36415; 96374

== ENCOUNTER 2024-08-01 22:10 | Emergency (ER) | payer OTHER ==
[2024-08-01] MEDS ORDERED: niCARdipine 25 MG/10 ML SDV ONE (23:15)
[2024-08-01 23:34] LABS: #Basophils 0.11 10x3/uL (0.0-0.2); #Eosinophils 0.43 10x3/uL (0.0-0.5); #Monocytes 1.11 10x3/uL (0.0-1.1); #Neutrophils 7.38 10x3/uL (1.5-8.4); %Basophils 0.9 % (0.0-2.0); %Eosinophils 3.6 % (0.0-6.0); %Lymphocytes 23.3 % (18.0-47.0); %Monocytes 9.3 % (0.0-10.0); Hematocrit 39.7 % (38.8-50.0); Hemoglobin 12.1 g/dL (13.5-17.5); Mean Corpuscular HGB CONC 30.5 g/dL (32.0-36.0); Mean Corpuscular Hemoglobin 27.3 pg (27.0-33.0); Mean Corpuscular Volume 89.4 fL (81.2-95.1); Mean Platelet Volume 12.1 fL (7.4-10.4); Platelet Count 414 10x3/uL (150-450); RBC Distribution Width 14.5 % (11.5-14.5); Red Blood Cell (RBC) Count 4.44 10x6/uL (4.32-5.72); White Blood Cell (WBC) Count 11.91 10x3/uL (3.5-10.5)
[2024-08-01] MEDS ORDERED: niCARdipine 25 MG in Sodium Chloride 0.9% 250 ML 250 ML IVPB SCH (23:45)
[2024-08-01 23:53] LABS: ALT (SGPT) 12 U/L (8-55); AST (SGOT) 9 U/L (5-34); Acetaminophen Less than 10 mcg/mL (Less than 10); Albumin 3.5 g/dL (3.5-5.0); Alcohol Less than 10.0 mg/dL (Less than 10); Alkaline Phosphatase 62 U/L (40-110); Anion Gap 20 mmol/L (10-20); BUN (Urea Nitrogen) 33 mg/dL (8.4-25.7); Bilirubin, Total 0.4 mg/dL (0.2-1.2); Calc. Creatinine Clearance 0 mL/min (70-130); Calcium 10.3 mg/dL (7.8-10.44); Carbon Dioxide 27 mmol/L (22-29); Chloride 91 mmol/L (98-107); Estimated GFR 6; Globulin 3.9 g/dL (2.4-3.5); Lipase 56 U/L (8-78); Potassium 5.3 mmol/L (3.5-5.1); Protein, Total 7.4 g/dL (6.0-8.3); Salicylate Less than 8.0 mg/dL (Less than 8.0); Sodium 133 mmol/L (136-145)
[2024-08-01 23:54] LABS: Critical Call Chemistry NUR.ERR@2354; Glucose 653 mg/dL (70-105)
[2024-08-01 23:59] LABS: Troponin I 0.055 ng/mL (< 0.028)
== END 2024-08-01 23:40 | disposition short-term general hospital (02) ==
LOC: CSHERS 22:10
DX: S06.5X0A Traumatic subdural hemorrhage without loss of consciousness, initial encounter (principal); I16.1 Hypertensive emergency; I12.0 Hypertensive chronic kidney disease with stage 5 chronic kidney disease or end stage renal disease; E11.22 Type 2 diabetes mellitus with diabetic chronic kidney disease; N18.6 End stage renal disease; Z79.4 Long term (current) use of insulin; Z99.2 Dependence on renal dialysis; W19.XXXA Unspecified fall, initial encounter
CPT/HCPCS: 36416; 70450; 71045; 80053; 80307; 82140; 83690; 84443; 84484; 85025; 93005; 94760